=== PATIENT | female | born 2000 | race Caucasian/White ===

== ENCOUNTER 2023-03-02 08:45 | Emergency (ER) | payer OTHER ==
[~2023-03-02] VITALS: Ht 157.5 cm; Wt 47.7 kg
[~2023-03-02 08:45] MED LIST: BUSPAR5 MG; CEPHALEXIN500 M1 PO; COMPAZINE 5MG TA5 MG PO; NORCO 325 MG-51 TAB PO; PRISTIQ 50 MG T50 MG PO; ZOFRAN ODT4 MG PO
[2023-03-02 08:52] VITALS: TEMP 97
[2023-03-02 09:19] LABS: BASO % 0.4 % (0.0-2.0); EOS % 0.1 % (0.0-4.0); GRAN # 5.8 K/mm3 (1.4-6.5); GRAN % 73.7 % (42.2-75.2); HEMATOCRIT 41.8 % (35.0-45.0); HEMOGLOBIN 14.5 g/dl (12.0-15.0); LYMPH # 1.7 K/mm3 (1.2-3.4); LYMPH % 21.9 % (20.0-51.0); MEAN CELL VOLUME 83 fl (80.0-95.0); MEAN CORPUSCULAR HEMOGLOBIN 29 pg (26-32); MEAN CORPUSCULAR HGB CONC 35 g/dl (33.0-37.0); MEAN PLATELET VOLUME 9.9 fl (7.4-10.4); MONO # 0.3 K/mm3 (0.1-0.6); MONO % 3.6 % (1.7-9.3); PLATELET COUNT 244 K/mm3 (130-400); RED BLOOD COUNT 5.02 M/mm3 (4.10-5.30); REDCELL DISTRIBUTION WIDTH-CV 13.2 % (11.5-14.5)
[2023-03-02 09:26] LABS: COLLECTION METHOD CLEAN CATCH
[2023-03-02 09:40] LABS: ALBUMIN 4.3 gm/dL (3.5-5.0); BILIRUBIN,TOTAL 1.3 mg/dL (0.2-1.2); CALCIUM 9.8 mg/dL (8.4-10.2); CREATININE, serum 0.86 mg/dL (0.57-1.11); POTASSIUM 3.5 mmol/L (3.5-4.5); TOTAL PROTEIN 7.2 gm/dL (6.2-8.1)
[2023-03-02 09:43] LABS: SQUAMOUS EPITHELIAL 0-2 /hpf (0-10); URINE APPEARANCE Clear (CLEAR/HAZY); URINE BLOOD Negative (NEGATIVE); URINE COLOR Yellow (YELLOW); URINE GLUCOSE Negative (NEGATIVE); URINE KETONE 1+ (NEGATIVE); URINE NITRATE Negative (NEGATIVE); URINE PROTEIN(semi-quant) Negative (NEGATIVE); URINE RBC 0-2 /hpf (0-2); URINE UROBILINOGEN 0.2 E.U/dL (0.2-1.0)
[2023-03-02 09:44] LABS: URINE BACTERIA None Seen /hpf (NONE SEEN)
[2023-03-02 10:31] VITALS: BP 120/79; PULSE 80
== END 2023-03-02 10:35 | disposition home or self-care (01) ==
LOC: COL.ER 08:45
PROVIDERS: Emergency Medicine
DX: R11.2 Nausea with vomiting, unspecified (principal); R10.84 Generalized abdominal pain; R74.02 Elevation of levels of lactic acid dehydrogenase [LDH]
CPT/HCPCS: J2270; J2765; J7030

== ENCOUNTER 2023-03-19 19:12 | Emergency (ER) | payer OTHER ==
[~2023-03-19] VITALS: Ht 157.5 cm; Wt 47.7 kg
[2023-03-19 19:21] VITALS: TEMP 98.3
[2023-03-19 19:43] LABS: BASO % 0.2 % (0.0-2.0); GRAN # 7.4 K/mm3 (1.4-6.5); GRAN % 73.3 % (42.2-75.2); HEMATOCRIT 43.9 % (35.0-45.0); HEMOGLOBIN 15.5 g/dl (12.0-15.0); LYMPH % 19.2 % (20.0-51.0); MEAN CELL VOLUME 83 fl (80.0-95.0); MEAN CORPUSCULAR HEMOGLOBIN 29 pg (26-32); MEAN CORPUSCULAR HGB CONC 35 g/dl (33.0-37.0); MEAN PLATELET VOLUME 9.7 fl (7.4-10.4); MONO # 0.7 K/mm3 (0.1-0.6); PLATELET COUNT 327 K/mm3 (130-400); RED BLOOD COUNT 5.28 M/mm3 (4.10-5.30)
[2023-03-19 20:43] LABS: ALBUMIN 4.7 gm/dL (3.5-5.0); BILIRUBIN,TOTAL 2.3 mg/dL (0.2-1.2); CALCIUM 10.5 mg/dL (8.4-10.2); CREATININE, serum 0.86 mg/dL (0.57-1.11); POTASSIUM 3.6 mmol/L (3.5-4.5); TOTAL PROTEIN 8.1 gm/dL (6.2-8.1)
[2023-03-19] MEDS ORDERED: ZOFRAN ODT4 MG PO (20:51)
[2023-03-19 21:13] VITALS: BP 129/68; PULSE 98
[2023-03-20] MEDS ORDERED: PHENERGAN12.5 MG/SU RC (14:36)
== END 2023-03-19 21:15 | disposition home or self-care (01) ==
LOC: COL.ER 19:12
PROVIDERS: Emergency Medicine
DX: R11.2 Nausea with vomiting, unspecified (principal)
CPT/HCPCS: J1885; J2405; J7120

== ENCOUNTER 2023-10-09 08:36 | Emergency (ER) | payer OTHER ==
[~2023-10-09] VITALS: Ht 157.5 cm; Wt 50.0 kg
[~2023-10-09 08:36] MED LIST changes: +PHENERGAN12.5 MG/SU RC
[2023-10-09 08:40] VITALS: TEMP 97.6
[2023-10-09] MEDS ORDERED: NS 1,000 ML IV ONE ×2 (09:00→10:45)
[2023-10-09] MEDS ORDERED: Ondansetron 4 MG/2 ML VIAL IV PRN ×2 (09:00→10:45)
[2023-10-09] MEDS ORDERED: LORazepam 2 MG/ML 1 ML VIAL IV ONE (09:00)
[2023-10-09 09:13] LABS: BASO % 0.5 % (0.0-2.0); EOS % 0.5 % (0.0-4.0); GRAN # 4.6 K/mm3 (1.4-6.5); GRAN % 62.4 % (42.2-75.2); HEMATOCRIT 46.8 % (37.0-47.0); HEMOGLOBIN 16.6 g/dl (12.5-16.0); LYMPH # 2.3 K/mm3 (1.2-3.4); LYMPH % 30.2 % (20.0-51.0); MEAN CELL VOLUME 82 fl (80.0-100.0); MEAN CORPUSCULAR HEMOGLOBIN 29 pg (27-31); MEAN CORPUSCULAR HGB CONC 36 g/dl (33.0-37.0); MONO # 0.5 K/mm3 (0.1-0.6); MONO % 6.3 % (1.7-9.3); PLATELET COUNT 316 K/mm3 (130-400); RED BLOOD COUNT 5.69 M/mm3 (4.10-5.30); REDCELL DISTRIBUTION WIDTH-CV 13.4 % (11.5-14.5)
[2023-10-09 09:34] LABS: ALBUMIN 4.9 g/dL (3.5-5.0); BILIRUBIN,TOTAL 3.1 mg/dL (0.2-1.2); CALCIUM 10.6 mg/dL (8.4-10.2); CREATININE, serum 1.24 mg/dL (0.57-1.11); POTASSIUM 3.2 mEq/L (3.5-4.5); TOTAL PROTEIN 8.6 g/dl (6.2-8.1)
[2023-10-09 12:19] VITALS: BP 116/82; PULSE 72
== END 2023-10-09 12:20 | disposition home or self-care (01) ==
LOC: COL.ER 08:36
PROVIDERS: Personal Emergency Response Attendant
DX: R11.2 Nausea with vomiting, unspecified (principal); E80.7 Disorder of bilirubin metabolism, unspecified
CPT/HCPCS: J2060; J2405; J7030